=== PATIENT | female | born 1970 | race African-American/Black ===

== ENCOUNTER 2017-03-17 00:42 | Emergency (ER) | payer OTHER ==
[~2017-03-17] VITALS: Ht 177.8 cm; Wt 90.7 kg
[2017-03-17] MEDS ORDERED: KETOROLAC 60MG/2ML VIAL IM ONE (06:15)
[2017-03-17] MEDS ORDERED: ACETAMINOPHEN WITH CODEINE 300/30MG TABLET PO ONE (08:30)
[2017-03-17 10:22] VITALS: BP 136/91
== END 2017-03-17 10:42 | disposition home or self-care (01) ==
LOC: ER 05:48
DX: R51 Headache (principal); R11.10 Vomiting, unspecified; R03.0 Elevated blood-pressure reading, without diagnosis of hypertension; F12.90 Cannabis use, unspecified, uncomplicated
CPT/HCPCS: 81025; 96372; 99283; J1885